=== PATIENT | female | born 1985 | race Caucasian/White ===

== ENCOUNTER 2021-03-20 10:03 | Emergency (ER) | payer OTHER ==
[2021-03-20 12:55] LABS: HEMOGLOBIN 14.3 gm/dl (12.3-15.3); RED BLOOD COUNT 4.81 M/UL (4.00-5.10); WHITE BLOOD COUNT 7.7 K/UL (4.5-11.0)
[2021-03-20 13:17] LABS: BUN/CREATININE RATIO 14 (0-10)
== END 2021-03-20 14:56 | disposition home or self-care (01) ==
LOC: ER1 10:03
PROVIDERS: Physician Assistant
DX: K58.9 Irritable bowel syndrome, unspecified (principal); F17.290 Nicotine dependence, other tobacco product, uncomplicated; Z90.710 Acquired absence of both cervix and uterus; Z88.0 Allergy status to penicillin; Z79.899 Other long term (current) drug therapy
CPT/HCPCS: 80053; 81001; 83690; 85025; 87086; 96374; 99284; J2765; J7030; Q9967

== ENCOUNTER → 2021-03-27 | Day surgery (SDC) | payer OTHER | END | disposition home or self-care (01) | LOC: OR 07:56 | DX: R10.84 Generalized abdominal pain (principal); K52.9 Noninfective gastroenteritis and colitis, unspecified; K62.5 Hemorrhage of anus and rectum; K64.0 First degree hemorrhoids; K21.9 Gastro-esophageal reflux disease without esophagitis; J45.909 Unspecified asthma, uncomplicated; F17.290 Nicotine dependence, other tobacco product, uncomplicated; Z88.0 Allergy status to penicillin | CPT/HCPCS: J2250; J2704; J7040 ==

== ENCOUNTER 2021-09-21 17:34 | Emergency (ER) | payer OTHER ==
[2021-09-21] MEDS ORDERED: TORADOL 10 MG T10 MG PO (19:40)
[2021-09-21] MEDS ORDERED: CYCLOBENZAPRINE10 MG PO (19:41)
== END 2021-09-21 20:05 | disposition home or self-care (01) ==
LOC: ER1 17:34
DX: S23.3XXA Sprain of ligaments of thoracic spine, initial encounter (principal); S70.02XA Contusion of left hip, initial encounter; S33.5XXA Sprain of ligaments of lumbar spine, initial encounter; S13.4XXA Sprain of ligaments of cervical spine, initial encounter; Z88.0 Allergy status to penicillin; V49.9XXA Car occupant (driver) (passenger) injured in unspecified traffic accident, initial encounter; F17.290 Nicotine dependence, other tobacco product, uncomplicated
CPT/HCPCS: 71045; 72070; 72100; 72125; 72170; 73564; 73590; 96372; 99283; J1885

== ENCOUNTER 2021-10-07 05:15 | Emergency (ER) | payer OTHER ==
[~2021-10-07 05:15] MED LIST: CYCLOBENZAPRINE10 MG PO; TORADOL 10 MG T10 MG PO
[2021-10-07 06:04] LABS: HEMOGLOBIN 12.9 gm/dl (12.3-15.3); RED BLOOD COUNT 4.29 M/UL (4.00-5.10); WHITE BLOOD COUNT 7.3 K/UL (4.5-11.0)
[2021-10-07 06:35] LABS: BUN/CREATININE RATIO 17 (0-10)
[2021-10-07 06:35] LABS: BORDETELLA PARAPERTUSSIS Not Detected (Not Detectd); BORDETELLA PERTUSSIS Not Detected (Not Detectd); CHLAMYDIA PNEUMONIAE Not Detected (Not Detectd); CORONAVIRUS HKU1 Not Detected (Not Detectd); CORONAVIRUS NL63 Not Detected (Not Detectd); CORONAVIRUS OC43 Not Detected (Not Detectd); CORONOAVIRUS 229E Not Detected (Not Detectd); HUMAN METAPNEUMOVIRUS Not Detected (Not Detectd); HUMAN RHINOVIRUS/ENTEROVIRUS Not Detected (Not Detectd); INFLUENZA A Not Detected (Not Detectd); INFLUENZA B Not Detected (Not Detectd); MYCOPLASMA PNEUMONIAE Not Detected (Not Detectd); PARAINFLUENZA VIRUS 1 Not Detected (Not Detectd); PARAINFLUENZA VIRUS 2 Not Detected (Not Detectd); PARAINFLUENZA VIRUS 3 Not Detected (Not Detectd); PARAINFLUENZA VIRUS 4 Not Detected (Not Detectd); RESPIRATORY SYNCYTIAL VIRUS Not Detected (Not Detectd)
[2021-10-07 08:00] LABS: SARS-CoV-2 DETECTED (Not Detectd)
== END 2021-10-07 08:25 | disposition home or self-care (01) ==
LOC: ER1 05:15
PROVIDERS: Physician Assistant; Physician Assistant Medical
DX: U07.1 COVID-19 (principal); J45.909 Unspecified asthma, uncomplicated; F17.290 Nicotine dependence, other tobacco product, uncomplicated; Z90.710 Acquired absence of both cervix and uterus; Z88.0 Allergy status to penicillin
CPT/HCPCS: 71045; 80053; 83605; 85025; 87040; 87081; 87633; 87880; 94760; 99283

== ENCOUNTER → 2021-10-18 | Outpatient (CLI) | payer OTHER | LOC: EXRD 10:05 | DX: R10.11 Right upper quadrant pain (principal) | CPT/HCPCS: 76705 ==